=== PATIENT | male | born 1950 | race Caucasian/White ===

== ENCOUNTER 2022-02-03 13:13 | Inpatient (IN) | payer OTHER, MEDICARE, SELFPAY ==
[2022-02-03 13:14] VITALS: BP 198/94; PULSE 76; RESP 16; TEMP 36.6; O2SAT 98; BMI 28.9
[2022-02-03] MEDS: Lidocaine Jelly 2% 20 ML Syringe (URO-JET) 1 APPLIC TOPICAL (14:02)
--- NOTE | 2022-02-03 14:16 | EDS_ITS ---
HPI History of Present Illness Chief Complaint: Complaint Informant: patient Narrative Narrative: 71-year-old male presenting with hematuria. Patient states he noted blood in his urine which started today. History of similar symptoms in the past. Denies any difficulty with urination. Denies pain. He is not on anticoagulants. Prior similar symptoms: Yes Recent Illness/Hospitalization: No PFSH PFSH Medical History (Updated 02/03/22 @ 13:24 by Amalia Hendrickson) High blood pressure Home Medications losartan-hydrochlorothiazide 1 tab PO DAILY 02/03/22 [History Last Taken Unknown] Allergy/AdvReac Type Severity Reaction Status Date / Time No Known Allergies Allergy Verified 02/03/22 13:17 Social History Smoking Status: Never smoker ROS ROS ED Constitutional Constitutional ED: Denies fever(s) Eyes Eyes: Denies change in vision ENT ENT ED: Denies rhinorrhea or sore throat Cardiovascular Cardiovascular: Denies chest pain or palpitations Respiratory/Chest Respiratory/Chest: Denies cough or dyspnea Gastrointestinal Gastrointestinal: Denies abdominal pain, diarrhea, nausea or vomiting Genitourinary Genitourinary ED: Reports hematuria; Denies dysuria Musculoskeletal Musculoskeletal: Denies myalgias Integumentary Denies rash Neurologic Neurologic: Denies headache(s) Psychiatric Psychiatric: Denies suicidal thoughts EXAM Physical Exam Const Vital Signs: 02/03/22 13:14 Temperature 97.8 F Temperature Source Temporal Pulse Rate 76 Respiratory Rate 16 Blood Pressure 198/94 H Blood Pressure Mean 128 Pulse Ox 98 Oxygen Delivery Method Room Air Positive well nourished and well developed General Appearance ED: well developed HEENT Reports normocephalic and head/scalp atraumatic Eyes PERRL and EOMs intact bilaterally Neck supple General: Negative for tenderness Chest Wall inspection of chest normal Resp normal respiratory effort and clear to auscultation bilaterally Cardio regular rate and regular rhythm GI non-tender and non-distended Palpation: soft; Negative for guarding or rebound tenderness present no CVA tenderness Narrative: exam is unremarkable. No testicular tenderness. Extremity normal to inspection Neuro oriented x3 Sensorium / Orientation: alert Psych mental status grossly normal MDM MDM MDM Narrative Medical decision making narrative: Ventura catheter was placed. Initially attempted irrigation and it remains dark red urine return. Continuous bladder irrigation was started. CBC, chemistries unremarkable other than creatinine 1.36. Discussed with Dr. Vences, patient will be admitted. CT abdomen/pelvis is pending. Lab Data Attestation: I reviewed the patient's lab results. Labs: Laboratory Results - last 24 hr 02/03/22 02/03/22 14:40 14:40 WBC 7.2 RBC 4.69 Hgb 14.7 Hct 42.4 MCV 90.4 MCH 31.3 MCHC 34.7 RDW Std Deviation 45.1 H RDW Coeff of Keiry 13.5 Plt Count 275 MPV 10.0 Immature Gran % (Auto) 0.300 Neut % (Auto) 51.2 Lymph % (Auto) 38.2 Isabella % (Auto) 7.1 Eos % (Auto) 2.4 Baso % (Auto) 0.8 Absolute Neuts (auto) 3.7 Absolute Lymphs (auto) 2.74 Nucleated RBC % 0 Sodium 139 Potassium 3.4 L Chloride 109 H Carbon Dioxide 25.0 Anion Gap 5 BUN 17 Creatinine 1.36 H Estim Creat Clear Calc 43.96 Est GFR (MDRD) Af Amer 67 Est GFR (MDRD) Non-Af 55 L BUN/Creatinine Ratio 12.5 Glucose 100 Calcium 8.6 Discharge Plan Triage Chief Complaint: Complaint ED Provider: Susanna Tran Dx/Rx/DC Orders Prescriptions: No Action losartan-hydrochlorothiazide 50-12.5 mg tablet 1 tab PO DAILY RF: 0 Primary Care Provider: Care Physician,No Primary
[2022-02-03 14:52] LABS: Absolute Lymphocyte Count 2.74 X10^3/uL (0.83-4.51); Absolute Neutrophil Count 3.7 X10^3/uL (2.0-7.7); Basophil# 0.06 X10^3/uL; Basophil% 0.8 % (0-1); Eosinophil# 0.17 X10^3/uL; Eosinophils% 2.4 % (0-5); Hematocrit 42.4 % (40-54); Hemoglobin 14.7 g/dL (13.0-16.5); Lymphocyte # 2.74 X10^3/ul (0.83-4.51); Lymphocyte % 38.2 % (19-41); Mean Corp Hgb Conc 34.7 g/dL (32-36); Mean Corpuscular Hgb 31.3 pg (27.0-32.0); Mean Corpuscular Volume 90.4 fL (80-94); Monocyte# 0.51 X10^3/uL; Monocyte% 7.1 % (0-10); NRBC Flagged by Analyzer 0 % (0-5); Neutrophil # 3.67 X10^3/uL (2.7-7.7); Neutrophil % 51.2 % (47-70); Platelet Count 275 K/mm3 (150-450); RBC Distribution Width CV 13.5 % (11.6-14.6); RBC Distribution Width SD 45.1 fl (35.1-43.9); Red Blood Count 4.69 M/mm3 (4.6-6.2); White Blood Count 7.2 K/mm3 (4.4-11.0)
[2022-02-03 15:05] LABS: Anion Gap 5 (5-15); BUN 17 mg/dL (7-18); BUN/Creat Ratio 12.5 RATIO (10-20); Calcium,Total 8.6 mg/dL (8.5-10.1); Chloride 109 mmol/L (98-107); Creatinine, Serum 1.36 mg/dL (0.70-1.30); EST Glomerular Filtration Rate 55 mL/min (>60); Est Glom Filt Rate - Afr Amer 67 mL/min (>60); Estimated Creatinine Clearance 43.96 ml/min; Glucose 100 mg/dL (74-106); Potassium 3.4 mmol/L (3.5-5.1); Sodium Level 139 mmol/L (136-145)
--- NOTE | 2022-02-03 15:32 | CT_ITS ---
EXAM: CT ABDOMEN AND PELVIS WITHOUT AND WITH INTRAVENOUS CONTRAST CLINICAL INDICATION: hematuria X 2 DAYS TECHNIQUE: Helically acquired images were obtained of the abdomen and pelvis without and with intravenous contrast. This CT exam was performed using one or more of the following dose reduction techniques: automated exposure control, adjustment of the mA and/or kV according to patient size, and/or use of iterative reconstruction technique. This report was created using [employer] report generation technology. Delayed imaging was performed. Coronal and sagittal reformatted images were created and reviewed. CONTRAST: IV 100mL Isovue-300 COMPARISON: None. FINDINGS: LOWER THORAX: Unremarkable. Lung bases are clear. No cardiomegaly. No significant pericardial effusion. ABDOMEN: LIVER: Unremarkable. Homogeneous. No focal mass. GALLBLADDER AND BILE DUCTS: Unremarkable. No calcified gallstones. No gallbladder distention or wall edema. No intra- or extrahepatic biliary ductal dilation. PANCREAS: Unremarkable. No focal cystic or solid mass. SPLEEN: Unremarkable. Normal size without focal cystic or solid mass. ADRENALS: Unremarkable. No nodules. KIDNEYS AND URETERS: Incomplete opacification of the right ureter (distal). No obvious ureteral masses. Simple bilateral renal cysts without enhancing component (BOSNIAK I). No required imaging follow-up needed given high likelihood of benign nature. Normal renal size and position. No hydronephrosis. STOMACH AND BOWEL: Unremarkable. No stomach or bowel distention. No focal inflammatory change. PELVIS: APPENDIX: No evidence of acute appendicitis. BLADDER: THOMSON catheter extends the urinary bladder which is partially distended. Hyperdensity within the urinary bladder likely represents blood products/hematoma. No bladder wall thickening. REPRODUCTIVE: Unremarkable as visualized. No mass. ABDOMEN and PELVIS: INTRAPERITONEAL SPACE: Unremarkable. No ascites or other fluid collection. No free air. BONES/JOINTS: Degenerative changes of the lumbar spine with acquired canal stenosis most severe at L4-L5. No suspicious lytic or blastic abnormality. SOFT TISSUES: Small fat-containing bilateral inguinal hernias. VASCULATURE: Unremarkable. Abdominal aorta is non-dilated. LYMPH NODES: Unremarkable. No enlarged lymph nodes. CT/CT Abd/Pelvis W/WO Contrast IMPRESSION: 1. THOMSON catheter extends the urinary bladder which is partially distended. Hyperdensity within the urinary bladder likely represents blood products/hematoma. 2. No hydronephrosis. No complex cystic or solid renal masses. Electronically Signed: Martinez Lugo MD (Brooks) at 16:30 EDT Reading Location ID and State: [facility] / [place] , Service support ,
--- NOTE | 2022-02-03 15:41 | HP.PCM_ITS ---
HPI - General HPI Narrative KOLTON TAYLOR, is a 71 M who presents sudden on of painless gross hematuria presented to the emergency room with significant bleeding three-way catheter was placed and on continuous bladder irrigation has bright red blood he will be admitted for management of his bleeding. FORMERLY [facility], [facility] Medical History (Updated 02/03/22 @ 15:[address] Mario Vences MD) High blood pressure Home Medications losartan-hydrochlorothiazide 1 tab PO DAILY 02/03/22 [History Last Taken Unknown] Allergy/AdvReac Type Severity Reaction Status Date / Time No Known Allergies Allergy Verified 02/03/22 13:17 Social History Smoking Status: Never smoker ROS Constitutional Constitutional: Denies chills, fever(s) or malaise Eyes Eyes: Denies blurry vision or change in vision ENT HEENT: Reports none Cardiovascular Cardiovascular: Denies chest pain or palpitations Respiratory/Chest Respiratory/Chest: Denies cough or shortness of breath with exertion Gastrointestinal Gastrointestinal: Denies abdominal pain, constipation or diarrhea Musculoskeletal Musculoskeletal: Denies back pain, joint stiffness or joint swelling Integumentary Integumentary: Denies dry skin, jaundice, lesions or rash Neurologic Neurologic: Denies confusion, syncope or weakness Psychiatric Psychiatric: Reports none; Denies anxiety or depression Endocrine Endocrinology: Denies excessive sweating, fatigue or flushing Hematologic/Lymphatic Hematologic/Lymphatic: Denies anemia, easy bleeding or easy bruising Vital Signs Vital Signs Vital Signs: 02/03/22 13:14 Temperature 97.8 F Temperature Source Temporal Pulse Rate 76 Respiratory Rate 16 Blood Pressure 198/94 H Blood Pressure Mean 128 Pulse Ox 98 Oxygen Delivery Method Room Air Weight Weight: 78.925 kg Body Mass Index (BMI) 28.9 Physical Exam Const alert and oriented x3 General Appearance: cooperative HEENT normocephalic, head/scalp atraumatic, EAC's normal and TM's normal bilaterally Eyes PERRL and EOMs intact bilaterally Pupil: sluggish Neck no lymphadenopathy, supple and no JVD General: trachea midline Lymph Lymphatic: no lymphadenopathy noted, lymphedema and lymphadenopathy Resp normal respiratory effort, normal air movement and clear to auscultation bilaterally Cardio regular rate, regular rhythm and peripheral pulses 2+ throughout GI soft to palpation, non-tender and non-distended Extremity normal capillary refill and no clubbing, cyanosis or edema General Extremity: no tenderness to palpation of joints or extremities Skin no rashes or lesions noted General Skin Exam: turgor normal Lesions: no lesions Rashes: no rashes Neuro CN's II-XII intact bilaterally Speech: speech normal Motor Exam: strength 5/5 throughout; Negative for general weakness Psych thought process normal, cooperative and affect normal Appearance: appropriate Results Lab / Micro Data Result Diagrams: 02/03/22 14:40 02/03/22 14:40 Labs: Laboratory Results - last 24 hr 02/03/22 14:40: WBC 7.2, RBC 4.69, Hgb 14.7, Hct 42.4, MCV 90.4, MCH 31.3, MCHC 34.7, RDW Std Deviation 45.1 H, RDW Coeff of Keiry 13.5, Plt Count 275, MPV 10.0, Immature Gran % (Auto) 0.300, Neut % (Auto) 51.2, Lymph % (Auto) 38.2, Jones % (Auto) 7.1, Eos % (Auto) 2.4, Baso % (Auto) 0.8, Absolute Neuts (auto) 3.7, Absolute Lymphs (auto) 2.74, Nucleated RBC % 0 02/03/22 14:40: Sodium 139, Potassium 3.4 L, Chloride 109 H, Carbon Dioxide 25.0, Anion Gap 5, BUN 17, Creatinine 1.36 H, Estim Creat Clear Calc 43.96, Est GFR (MDRD) Af Amer 67, Est GFR (MDRD) Non-Af 55 L, BUN/Creatinine Ratio 12.5, Glucose 100, Calcium 8.6 Assessment & Plan Assessment/Plan (1) Hematuria: PLAN: Patient to hospital for continuous bladder irrigation plan to take to surgery tomorrow for a cystoscopy evacuation clots and possible TURBT. We will do a CT scan for preoperative planning. (2) High blood pressure: PLAN: Continue with blood pressure medications.
--- NOTE | 2022-02-03 15:59 | NURSING ---
MED SURG OBS MARÍA ELENA HEMATURIA
[2022-02-03 16:52] VITALS: BP 196/85; PULSE 95; RESP 16; TEMP 36.2; O2SAT 98
[2022-02-03 17:11] VITALS: BP 196/89; PULSE 65; RESP 16; TEMP 36.2; O2SAT 98
--- NOTE | 2022-02-03 17:13 | CM.ED ---
RN CM Assessment Introduced role of RN CM to patient.? Patient is alert, oriented and able?to participate in RN CM Assessment. ?Care providers, pharmacy, and demographics verified. Admit Dx: IP for gross hematuria Re-Admit: No Barriers/Issues: None PCP: Has one that he sees in [place] but cannot recall her name Specialists: None Preferred [facility]acy: [facility] Insurance: [employer] [facility] A/B Rx Benefit:?Yes LNOK: Friend Lubna Mccabe LW/HPOA: None. AD information with [employer] rack card provided. Informed can complete inpatient or outpatient. Living Arrangements:?Lives alone in a H. 2 steps to enter home. ADL?s: Independent with ambulation and ADLs Transportation: Patient drives, drove self to hospital and plans to drive at DC DME: None HHC: None SNF: None Goal: Home and does not think will have any needs, issues or concerns with going home. Aware RNCM will continue to follow should any needs arise. DC PLAN: Home and no anticipated needs identified at this time. MER Zhu
[2022-02-03 17:51] VITALS: BMI 30.7
[2022-02-03 18:25] VITALS: BP 186/103; PULSE 70; RESP 18; TEMP 36.6; O2SAT 98
[2022-02-03] MEDS: Acetaminophen 500 MG Tablet PO (20:57)
[2022-02-03 21:10] VITALS: BP 145/83; PULSE 84; RESP 16; TEMP 36.9; O2SAT 97
[2022-02-03] MEDS: Cefazolin 1 GM/50 ML BAG IV (21:32)
[2022-02-04] VITALS (12 sets, daily range): BP systolic 106–152; BP diastolic 52–73; PULSE 58–74; RESP 16–18; TEMP 36.3–36.9; O2SAT 93–98; BMI 30.7
--- NOTE | 2022-02-04 | IMM_PTH ---
PATIENT: KOLTON TAYLOR LOC: MS3 U#:[id number] AGE/SX: 71/M ROOM: [facility]322 RE02/03/[address]: Dr. Mario Vences MD : 1950 BED: 1 DIS: 02/05/2022 SPEC #: [id number] RECD: 02/08/22 13:15 STATUS: BRYAN REJazmine #: [id number] LETITIA: 02/04/22 00:[address]: Mario Vences DEPT: IMMUNOHISTOCHEMISTRY RECD BY: Vero Cazares ENTERED: 02/08/22 13:17 SP TYPE: IMMUNO OTHR DR: No Primary Care Phys Tissues: PROSTATE BIOPSY Procedures: CK20 (add) CK5-6 (add) CK7 (add) CK8 (add) 34BE12 (add) Pankeratin (initial) P40 (add) CD44 (add) PSAP (add) PHYSICIAN & INSTITUTION [place] [id number] SPECIMEN INFORMATION: Tissue Source: Prostate tissue Clinical Info: Hematuria Specimen Number: [id number] #1, 5 & 8 CPT code: 67266, 62559 x12 METHODOLOGY: Deparaffinized sections of prefer/formalin-fixed tissue or PAP/DQ stained slides are incubated with monoclonal/polyclonal antibodies/oligonucleotide probes. Localization is made via biotin free immunoperoxidase method. Appropriate controls are performed and reacted as expected. Results on target cell population are indicated in the following table: RESULTS: ANTIBODY / CLONE RESULT Block 1 P40 (BC28) positive 34BE12 (34BE12) positive AE1-3 (AE1/AE3/PCK26) positive CK7 (OV-TL12/30) negative CK8 (97nbwmU93) positive CK20 (KS20.8) negative PSAP (PASE/4LJ) positive anti-CD44 (SP37) positive, focal CK5-6 (D5 & 1684) positive, focal Block 5 P40 (BC28) positive 34BE12 (34BE12) positive Block 8 P40 (BC28) positive 34BE12 (34BE12) positive These tests were developed and their performance characteristics determined by [facility]. They may not have been cleared or approved by the U.S. Food and Drug Administration. The FDA has determined that such clearance or approval is not necessary. The above immunohistochemical/dualISH markers are ordered and reviewed by the Pathologist. INTERPRETATION: Prostate, transurethral resection: Benign prostatic hyperplasia, negative for malignancy. SJ:alex 02/09/2022 Case has been reviewed in consultation with Dr. Kenny who concurs with the above diagnosis. IDC:AM
--- NOTE | 2022-02-04 | PROS_PTH ---
PATIENT: KOLTON TAYLOR LOC: MS3 U#:[id number] AGE/SX: 71/M ROOM: [facility] RE02/03/[address]: Dr. Mario Vences MD : 1950 BED: 1 DIS: 02/05/2022 SPEC #: [id number] RECD: 02/04/22 15:15 STATUS: BRYAN MCNALLY #: [id number] LETITIA: 02/04/22 00:[address]: Mario Venecs DEPT: SURGICAL PATHOLOGY RECD BY: Amber Garcia ENTERED: 02/05/22 09:03 SP TYPE: TURP CHELSEY DR: No Primary Care Phys Tissues: Prostate, NOS Procedures: Surgery Specimen Level IV HEADER OPERATION: Cysto, evacuation hematoma, TURP PRE-OP DIAGNOSIS: Hematuria TISSUE SUBMITTED: Prostate tissue MICROSCOPIC DIAGNOSIS Prostate tissue, transurethral resection: Benign prostatic hyperplasia, glandular and stromal type. Focal basal cell hyperplasia and chronic inflammation. See comment. SJ:alex 02/09/2022 COMMENT Numerous blood clots are noted. Immunohistochemistry ([id number]) supports the above diagnosis. Case has been reviewed in consultation with Dr. Kenny who concurs with the above diagnosis. IDC:AM MICROSCOPIC DESCRIPTION Slides are reviewed. GROSS DESCRIPTION Received is one container labeled with the patient's name and designated prostate tissue. The specimen consists of multiple irregular fragments of pink-curry, rubbery, soft tissue that in aggregate weigh 83.3 gm and measure in aggregate 11 x 10 x 4 cm. The specimen predominantly consists of blood clots. Associate Account Manager tissue is submitted in ten cassettes. Almost the entire soft tissue is submitted. / BRAYAN:alex 02/05/2022 TC:5 CPT: 42711
[2022-02-04] MEDS: Cefazolin 1 GM/50 ML BAG IV ×3 (05:44→22:17)
--- NOTE | 2022-02-04 06:00 | EKG12_ITS ---
Test Reason : PRE-OP Blood Pressure : / mmHG Vent. Rate : 058 BPM Atrial Rate : 058 BPM P-R Int : 162 ms QRS Dur : 096 ms QT Int : 478 ms P-R-T Axes : 064 -10 -02 degrees QTc Int : 469 ms Sinus bradycardia Otherwise normal ECG No previous ECGs available Confirmed by DEBBI LINARES, ROC ([id number]), purchase request editor JEANINE HALL ([id number]) on 02/05/2022 2:40:22 PM Referred By: MARÍA ELENA Confirmed By:LEE WERNER MD
[2022-02-04 06:06] LABS: Hematocrit 40.6 % (40-54); Hemoglobin 13.7 g/dL (13.0-16.5); Mean Corp Hgb Conc 33.7 g/dL (32-36); Mean Corpuscular Volume 88.8 fL (80-94); Mean Platelet Vol. 10.1 fl (6.2-12.0); Platelet Count 271 K/mm3 (150-450); RBC Distribution Width CV 13.6 % (11.6-14.6); RBC Distribution Width SD 44.6 fl (35.1-43.9); Red Blood Count 4.57 M/mm3 (4.6-6.2); White Blood Count 11.8 K/mm3 (4.4-11.0)
[2022-02-04 06:31] LABS: Anion Gap 5 (5-15); BUN 21 mg/dL (7-18); BUN/Creat Ratio 15.1 RATIO (10-20); Calcium,Total 8.6 mg/dL (8.5-10.1); Chloride 106 mmol/L (98-107); Creatinine, Serum 1.39 mg/dL (0.70-1.30); EST Glomerular Filtration Rate 54 mL/min (>60); Est Glom Filt Rate - Afr Amer 65 mL/min (>60); Estimated Creatinine Clearance 43.02 ml/min; Glucose 95 mg/dL (74-106); Potassium 3.7 mmol/L (3.5-5.1); Sodium Level 138 mmol/L (136-145)
--- NOTE | 2022-02-04 07:18 | PCM.CONS.B ---
Consult Date of Consult: 02/04/22 Urine is clearing up with irrigation surgery is planned for today around 430 for cystoscopy and depending on the finding we will have to see what the source of the bleeding is we will review the CAT scan today continue with irrigation n.p.o. for surgery.
[2022-02-04] MEDS: Losartan Potassium 50 MG Tablet PO (08:06)
[2022-02-04] MEDS: hydroCHLOROthiazide 12.5mg 12.5 MG PO (08:06)
--- NOTE | 2022-02-04 12:19 | NURSING ---
to surgery via bed
--- NOTE | 2022-02-04 13:17 | PCM.OPRPT ---
Report of Operation Date of Procedure: 02/04/22 Pre-Operative Diagnosis: Bleeding from prostate Post-Operative Diagnosis: Same Surgery/Procedure Performed:: Transurethral section of prostate Description of Surgical Findings:: In the preoperative setting I discussed with the patient how the surgery would be done with expect afterwards. We discussed how a prostate resection is done and we discussed the risk of the surgery including, bleeding, infection, retrograde ejaculation, changes with ejaculation or intercourse,. We discussed the possibility that the resection of the prostate may not alleviate his urinary symptoms. We discussed the small risk of developing scar tissue along the urethral channel and strictures. We also discussed the chance of the prostate could grow back and he may need further surgery or treatment in the future for prostate problems. Patient was taken back to the operating room, timeout procedure was performed, he was identified and marked and placed on the operating room table. He underwent general anesthesia. He was placed in dorsolithotomy position. Penis and testicles were prepped and draped in usual sterile fashion. Went into the bladder using the visual obturator with a resectoscope. Once inside the bladder identified the right and left ureteral orifice. I then identified the prostate and the anatomy of the prostate. I marked out the area of the sphincter and the verumontanum was identified. I then proceeded with the prostate resection first resected the median lobe. And then resected the right lobe of the prostate. Then to resect the left lobe of the prostate. I then resected the apical tissue of the prostate. This was a complete resection of all obstructive tissue to improve voiding and relieve obstruction. I then made sure that there was no injury to the sphincter or the verumontanum was still intact. At the end of the resection all the chips were Ellik out of the bladder. I then identified the left and right ureteral orifice and these were confirmed to be in good position and effluxing and not injured. The resectoscope was removed, a 22 Cymraes catheter was placed into the bladder on continuous irrigation. And the urine was fairly light pink color and draining normally. He was taken back to the PACU in good condition. CPT 70480 Surgeon: Vangie Type of Anesthesia: General Admit VTE Documentation VTE Present on Admission: No VTE Mechan Device Prophylaxis: SCD's VTE Pharm Prophylaxis ordered?: No
--- NOTE | 2022-02-04 14:18 | SUR.PHASEI ---
this nurse attempted to update next of kin Lubna on phone, mail box full.
[2022-02-05 03:30] VITALS: BP 143/69; PULSE 73; RESP 16; TEMP 36.4; O2SAT 94
[2022-02-05] MEDS: Acetaminophen 500 MG Tablet PO (03:35)
[2022-02-05] MEDS: Cefazolin 1 GM/50 ML BAG IV ×2 (05:29→14:02)
[2022-02-05 09:17] VITALS: BP 124/53; PULSE 65; RESP 16; TEMP 37.1; O2SAT 95
[2022-02-05] MEDS: hydroCHLOROthiazide 12.5mg 12.5 MG PO (09:18)
[2022-02-05] MEDS: Losartan Potassium 50 MG Tablet PO (09:18)
[2022-02-05 15:52] VITALS: BP 133/68; PULSE 90; RESP 18; TEMP 36.4; O2SAT 95
--- NOTE | 2022-02-05 15:52 | NURSING ---
Written discharge instructions given to patient.
== END 2022-02-05 16:03 | disposition home or self-care (01) | DRG 667 ==
LOC: ED 16:45 → MS3 16:51
PROVIDERS: Admitting Provider Urology; Emergency Provider Emergency Medicine; Visit Provider Urology
PROC: 0TBB8ZZ Excision of Bladder, Via Natural or Artificial Opening Endoscopic (ICD-10-PCS; principal; 2022-02-04 16:20)
DX: R31.9 Hematuria, unspecified (principal); I10 Essential (primary) hypertension; K21.9 Gastro-esophageal reflux disease without esophagitis; Z79.899 Other long term (current) drug therapy
CPT/HCPCS: 36415; 51702; 74178; 80048; 85025; 85027; 87811; 88305; 88341; 88342; 93005; 99285; Q9967; A4216; J2405